=== PATIENT | male | born 1990 | race African-American/Black ===

== ENCOUNTER 2018-08-03 01:20 | Observation (INO) ==
[2018-08-03] MEDS ORDERED: cefTRIAXone 1,000 MG in SODIUM CHLORIDE 0.9% 100 ML IV STA (01:49)
[2018-08-03] MEDS ORDERED: methylPREDNISolone SOD SUC 125 MG/2 ML VIAL IV STA (01:49)
[2018-08-03] MEDS ORDERED: ALBUTEROL 2.5 MG/3 ML NEB RESP TX SCH (02:00)
[2018-08-03 02:31] LABS: Basophils % 0.4 % (0.0-0.8); Eosinophils # 0.3 10*3/uL (0.0-0.87); Hematocrit 41.3 VOL% (42.0-52.0); Hemoglobin 13.8 GM/DL (14.0-18.0); Immature Granulocytes % 0.4 %; Immature Granulocytes Absolute 0.04 #; Lymphocytes # 1.6 10*3/uL (1.4-4.0); Mean Corpuscular HGB Conc 33.4 GM/DL (32-36); Mean Corpuscular Hemoglobin 30 PG (27-34); Mean Corpuscular Volume 90.8 FL (87-102); Mean Platelet Volume 10.3 FL (9.6-12.0); Monocytes # 1.4 10*3/uL (0.11-0.8); Monocytes % 12.9 % (1.7-12.7); Neutrophils # 7.3 10*3/uL (1.4-7.4); Neutrophils % 68.3 % (38.7-73.9); Platelet Count 155 T/CUMM (130-400); Red Blood Count 4.55 MC/CUMM (3.8-5.5); Red Cell Distribution Width 13.5 % (9.3-17.3); White Blood Count 10.7 T/CUMM (4-12)
[2018-08-03 02:40] LABS: INR 0.9; PT Patient Result 10.3 SECS; Partial Thromboplastin Time 32.4 SECS (0-40)
[2018-08-03 02:52] LABS: Bilirubin,Total 0.4 MG/DL (0.2-1.0); Calcium 9.1 MG/DL (8.5-10.1); Osmolality,Calculated 282.1 MOS/KG (273-304); Potassium 3.7 MMOL/L (3.5-5.1); Total Protein 7.7 G/DL (6.4-8.3)
[2018-08-03] MEDS ORDERED: ACETAMINOPHEN 325 MG TABLET PO PRN (03:50)
[2018-08-03] MEDS ORDERED: ONDANSETRON 4 MG/2 ML VIAL IV PRN (03:50)
[2018-08-03] MEDS ORDERED: ALBUTEROL 2.5 MG/3 ML NEB RESP TX PRN (03:50)
[2018-08-03] MEDS ORDERED: NAPROXEN 250 MG TABLET PO PRN (05:03)
[2018-08-03] MEDS: ALBUTEROL/IPRATROPIUM 3 ML NEB RESP TX SCH ×3 (07:37→20:25)
[2018-08-03] MEDS: PANTOPRAZOLE 40 MG TABLET PO SCH (09:49)
[2018-08-03] MEDS: methylPREDNISolone SOD SUC 40 MG/1 ML VIAL IV SCH ×2 (09:49→17:40)
[2018-08-03] MEDS: NICOTINE 7 MG/24 HR PATCH TRANSDERM SCH (15:32)
[2018-08-04] MEDS: ALBUTEROL/IPRATROPIUM 3 ML NEB RESP TX SCH ×2 (00:25→07:34)
[2018-08-04] MEDS: methylPREDNISolone SOD SUC 40 MG/1 ML VIAL IV SCH ×2 (01:16→09:31)
[2018-08-04] MEDS ORDERED: cefTRIAXone 1,000 MG in SYRINGE 1 EACH IV SCH (02:00)
[2018-08-04] MEDS: NICOTINE 7 MG/24 HR PATCH TRANSDERM SCH (09:31)
[2018-08-04] MEDS: PANTOPRAZOLE 40 MG TABLET PO SCH (09:31)
[2018-08-04 11:39] VITALS: BP 135/66
== END 2018-08-04 12:05 | disposition home or self-care (01) ==
LOC: N.EDINP 01:20 → N.ED 01:20 → N.2E 04:14
PROVIDERS: ADMIT Internal Medicine; ATTEND Internal Medicine